=== PATIENT | female | born 1940 | race Caucasian/White ===

== ENCOUNTER 2020-01-23 07:00 | Outpatient (CLI) | payer MEDICARE, OTHER ==
[2020-01-23 18:35] LABS: BASOPHILS % (AUTO) 0.6 %; EOSINOPHILS # (AUTO) 0.2 10^3/uL (0.0-0.7); EOSINOPHILS % (AUTO) 3.9 %; HGB - HEMOGLOBIN 12.9 g/dL (12.0-16.0); LYMPHOCYTES # (AUTO) 0.9 10^3/uL (1.5-3.5); LYMPHOCYTES % (AUTO) 17.2 %; MEAN CORPUSCULAR HEMOGLOBIN 30.7 pg (27.0-31.0); MEAN CORPUSCULAR HGB CONC 31.6 g/dL (32.0-36.0); MEAN CORPUSCULAR VOLUME 97.1 fL (81.0-99.0); MEAN PLATELET VOLUME 10.2 fL (7.9-10.8); MONOCYTES # (AUTO) 0.5 10^3/uL (0.0-1.0); MONOCYTES % (AUTO) 8.9 %; NEUTROPHILS # (AUTO) 3.8 10^3/uL (1.5-6.6); PLT - PLATELET COUNT 186 10^3/uL (130-450); WHITE BLOOD COUNT 5.4 x10^3/uL (4.8-10.8)
[2020-01-23 18:56] LABS: ALBUMIN 4.1 g/dL (3.2-5.5); ALBUMIN/GLOBULIN RATIO 1.4 (1.0-2.2); ALKALINE PHOSPHATASE 115 IU/L (42-121); ALT ALANINE AMINOTRANSFERASE 22 IU/L (10-60); AST ASPARTATE AMINOTRANSFERASE 26 IU/L (10-42); BILIRUBIN,TOTAL 0.9 mg/dL (0.2-1.0); BUN - BLOOD UREA NITROGEN 20 mg/dL (6-20); CALCIUM 9.5 mg/dL (8.5-10.3); CARBON DIOXIDE - CO2 27 mmol/L (21-32); CHLORIDE 103 mmol/L (101-111); CHOL/HDL RATIO 3.7 (<4.4); CHOLESTEROL 200 mg/dL; CREATININE 1.2 mg/dL (0.4-1.0); GLUCOSE 85 mg/dL (70-100); HDL CHOLESTEROL 54 mg/dL; LDL CHOLESTEROL,CALCULATED 125 mg/dL; LDL/HDL RATIO 2.3 (<4.4); SODIUM 137 mmol/L (135-145); VLDL CHOLESTEROL 21 mg/dL
== END 2020-01-23 23:59 | disposition home or self-care (01) ==
LOC: LAB.WCP 07:00
PROVIDERS: ATTEND Physician Assistant
DX: I10 Essential (primary) hypertension (principal); E78.5 Hyperlipidemia, unspecified; E55.9 Vitamin D deficiency, unspecified
CPT/HCPCS: 36415; 80053; 80061; 82306; 83721; 85025

== ENCOUNTER 2021-07-04 16:02 | Outpatient (CLI) | payer MEDICARE, OTHER ==
--- NOTE | 2021-07-04 16:24 | XRAY Report ---
PROCEDURE: Chest 2 View X-Ray INDICATIONS: SOB, ORTHOPNEA TECHNIQUE: 2 view(s) of the chest. COMPARISON: None. FINDINGS: Surgical changes and devices: Cardiac monitoring device overlying the midline chest.. Lungs and pleura: No pleural effusions or pneumothorax. Prominent pulmonary vasculature markings. No silhouetting. Mediastinum: Mediastinal contours are normal. Heart size is normal. Bones and chest wall: No suspicious bony abnormalities. Soft tissues appear unremarkable. IMPRESSION: Possible pulmonary vasculature engorgement. Reviewed by: Chris Finney MD on 07/04/2021 4:22 PM PDT Approved by: Chris Finney MD on 07/04/2021 4:22 PM PDT Station ID: [id number]
== END 2021-07-04 16:03 | disposition home or self-care (01) ==
LOC: DI.N 16:02
PROVIDERS: ATTEND Physician Assistant
DX: R06.02 Shortness of breath (principal); R06.01 Orthopnea

== ENCOUNTER 2021-10-15 16:22 | Outpatient (CLI) | payer MEDICARE, OTHER ==
--- NOTE | 2021-10-15 21:09 | XRAY Report ---
PROCEDURE: Lumbar Spine 2 View INDICATIONS: LOW BACK PX TECHNIQUE: 3 views of the lumbar spine were acquired. COMPARISON: None. FINDINGS: Bones: 5 [id number] vertebrae are present. There is mild rightward scoliotic curvature with ap ex at L3. Multilevel moderate to severe degenerative disc space narrowing is present most severe at L 4-5. Multilevel moderate to severe foraminal narrowing is present most severe at L4-5 and L5-S1.. No vertebral body compression fractures. No suspicious bony lesions. Soft tissues: Overlying bowel gas pattern is normal. No suspicious soft tissue calcifications. IMPRESSION: Significant multilevel degenerative changes as above. Reviewed by: Dyan Marcial MD on 10/15/2021 9:07 PM PDT Approved by: Dyan Marcial MD on 10/15/2021 9:07 PM PDT Station ID: [id number]
== END 2021-10-15 16:23 | disposition home or self-care (01) ==
LOC: DI.N 16:22
PROVIDERS: ATTEND Internal Medicine
DX: M51.16 Intervertebral disc disorders with radiculopathy, lumbar region (principal); M48.061 Spinal stenosis, lumbar region without neurogenic claudication; M48.07 Spinal stenosis, lumbosacral region

== ENCOUNTER 2022-02-18 08:07 | Day surgery (SDC) | payer MEDICARE, OTHER ==
[2022-02-18] MEDS ORDERED: LACTATED RINGERS 1,000 ML IV ONE (08:13)
--- NOTE | 2022-02-18 09:33 | ANESTHESIA ---
Pre-Anesthesia VS, & Labs - Diagnosis Gerd, screening - Procedure EGD, Colonoscopy Vital Signs: Temp Pulse Resp BP Pulse Ox O2 Flow Rate 36.3 C L 60 17 127/99 H 96 02/18/22 08:13 02/18/22 08:13 02/18/22 08:13 02/18/22 08:13 02/18/22 08:13 Height: 5 ft 4 in Weight (kg): 76.2 kg Body Mass Index: 28.8 BMI Classification: Overweight - NPO >8 hours - Is Patient ?: No Home Medications and Allergies Home Medications: Ambulatory Orders Acetaminophen [Tylenol] 1 tab PO DAILY 02/17/22 Atorvastatin [Lipitor] 1 tab PO DAILY 02/17/22 Estradiol [Estrace] 0.5 mg PO ONCE 02/17/22 Ipratropium Marion 1 applic INH DAILY 02/17/22 Losartan [Cozaar] 0.5 tab PO DAILY 02/17/22 Sertraline [Zoloft] 2 tab PO DAILY 02/17/22 Sotalol [Betapace] 1 tab PO BID 02/17/22 Warfarin Sodium [Jantoven] 1 tab PO DAILY 02/17/22 amLODIPine [Norvasc] 1 tab PO DAILY 02/17/22 Acetaminophen [Tylenol] 1 tab PO DAILY 02/17/22 Atorvastatin [Lipitor] 1 tab PO DAILY 02/17/22 Estradiol [Estrace] 0.5 mg PO ONCE 02/17/22 Ipratropium Marion 1 applic INH DAILY 02/17/22 Losartan [Cozaar] 0.5 tab PO DAILY 02/17/22 Sertraline [Zoloft] 2 tab PO DAILY 02/17/22 Sotalol [Betapace] 1 tab PO BID 02/17/22 Warfarin Sodium [Jantoven] 1 tab PO DAILY 02/17/22 amLODIPine [Norvasc] 1 tab PO DAILY 02/17/22 Allergies/Adverse Reactions: Allergies Allergy/AdvReac Type Severity Reaction Status Date / Time lisinopril AdvReac Respiratory Verified 02/17/22 12:39 Anes History & Medical History - Anesthetic History Anesthesia Complications: reports: No previous complications - Medical History Cardiovascular: reports: Hypertension, Other Pulmonary: reports: None Gastrointestinal: reports: Other Urinary: reports: None Musculoskeletal: reports: None Endocrine/Autoimmune: reports: None Skin: reports: None - Surgical History Eyes Ears Nose Throat (EENT): reports: Tonsil/Adenoidectomy Cardiothoracic: reports: Pacemaker Gynecologic: reports: section, Hysterectomy, Breast implants Orthopedic: reports: Carpal Tunnel surgery Exam General: Alert, Oriented x3 Dental: WNL Mouth Opening: Greater than 4 Fingerbreadths Neck Mobility: Normal Mallampati classification: II Thyromental Distance: greater than 6 cm Respiratory: Lungs clear Cardiovascular: Regular rate Plan Anesthesia Type: Total IV Consent for Procedure(s) Verified and Reviewed: Yes Code Status: Attempt Resuscitation ASA classification: 2-Mild systemic disease Is this case an emergency?: No
[2022-02-18] MEDS ORDERED: PROPOFOL 500 MG/50 ML 500 MG/50 ML VIAL ONE (09:41)
[2022-02-18] MEDS ORDERED: LIDOCAINE-MPF 2% 5 ML VIAL ONE (09:41)
[2022-02-18] MEDS ORDERED: LACTATED RINGERS 600 ML IV ONE (10:26)
[2022-02-18 11:03] VITALS: BP 124/53
--- NOTE | 2022-02-18 13:42 | ANESTHESIA POST OP EVALUATION ---
Anesthesia Post Eval - Post Anesthesia Eval Vitals: Last Vital Signs Temp 96.4 C H 02/18/22 10:37 Pulse 58 L 02/18/22 11:01 Resp 16 02/18/22 11:01 BP 124/53 L 02/18/22 11:01 Pulse Ox 97 02/18/22 11:01 O2 Flow Rate CV Function Including HR & BP: Stable Pain Control: Satisfactory Nausea & Vomiting: Negative Mental Status: Baseline Respiratory Status: Airway Patent Hydration Status: Satisfactory Anesthesia Complications: None
== END 2022-02-18 08:08 | disposition home or self-care (01) ==
LOC: SDS 08:07
PROVIDERS: ATTEND Surgery
PROC: 0DB78ZX Excision of Stomach, Pylorus, Via Natural or Artificial Opening Endoscopic, Diagnostic (ICD-10-PCS; 2022-02-18)
PROC: 0DBK8ZZ Excision of Ascending Colon, Via Natural or Artificial Opening Endoscopic (ICD-10-PCS; principal; 2022-02-18 09:15)
PROC: 0DB58ZX Excision of Esophagus, Via Natural or Artificial Opening Endoscopic, Diagnostic (ICD-10-PCS; 2022-02-18 09:15)
DX: K92.1 Melena (principal); K29.51 Unspecified chronic gastritis with bleeding; D12.2 Benign neoplasm of ascending colon; K64.8 Other hemorrhoids; K57.30 Diverticulosis of large intestine without perforation or abscess without bleeding; K20.90 Esophagitis, unspecified without bleeding; D50.9 Iron deficiency anemia, unspecified; I48.0 Paroxysmal atrial fibrillation; Z79.01 Long term (current) use of anticoagulants; Z95.0 Presence of cardiac pacemaker
CPT/HCPCS: 43239; 45385; J7120

== ENCOUNTER 2022-09-05 15:19 | Outpatient (CLI) | payer MEDICARE, OTHER | END 2022-09-05 23:59 | disposition EMS.NT | LOC: EMS 15:19 | DX: S80.812A Abrasion, left lower leg, initial encounter (principal); W13.8XXA Fall from, out of or through other building or structure, initial encounter; Y92.008 Other place in unspecified non-institutional (private) residence as the place of occurrence of the external cause ==